=== PATIENT | female | born 1970 | race Caucasian/White ===

== ENCOUNTER → 2017-08-08 | Outpatient (CLI) | payer OTHER ==
[~2017-08-08] MED LIST: AZIT250T PO; CLON.2 PO; GUAI118S23 PO; SULF1TAB42 PO; ZOLP10TA2 PO
[2017-08-08 11:13] LABS: BASOPHILS # (AUTO) 0.06 K/uL (0.00-0.20); BASOPHILS % (AUTO) 0.5 % (0.0-2.0); EOSINOPHILS # (AUTO) 0.49 K/uL (0.00-0.70); EOSINOPHILS % (AUTO) 4.57 % (1.0-6.0); HEMATOCRIT 41.9 % (36-46); HEMOGLOBIN 14.5 g/dL (12.0-16.0); LYMPHOCYTES # (AUTO) 3.7 K/uL (1.0-4.8); LYMPHOCYTES % (AUTO) 34.7 % (22.0-44.0); MEAN CORPUSCULAR HEMOGLOBIN 30.8 pg (26.0-34.0); MEAN CORPUSCULAR HGB CONC 34.5 G/dL (31.0-37.0); MEAN CORPUSCULAR VOLUME 89 fL (80-100); MONOCYTES # (AUTO) 0.5 K/uL (0.1-1.0); MONOCYTES % (AUTO) 4.7 % (2.0-9.0); NEUTROPHILS % (AUTO) 55.5 % (40.0-70.0); PLATELET COUNT (AUTO) 204 K/uL (150-450); RED BLOOD CELL COUNT(AUTO) 4.69 MIL/uL (4.00-5.20); RED CELL DISTRIBUTION WIDTH 13.9 % (11.5-14.5); WHITE BLOOD COUNT (AUTO) 10.8 K/uL (4.5-11.0)
[2017-08-08 11:29] LABS: IRON, SERUM 103 mcg/dL (50-175); TOTAL IRON BINDING CAPACITY 326 mcg/dL (250-450)
[2017-08-08 11:34] LABS: VITAMIN B12 LEVEL 420 pg/mL (211-911)
[2017-08-08 13:01] LABS: ALANINE AMINOTRANSFERASE 27 U/L (12-78); ALBUMIN 3.8 g/dL (3.4-5.0); ANION GAP 9 mmol/L (8-16); ASPARTATE AMINOTRANSFERASE 15 U/L (15-37); BILIRUBIN,TOTAL 0.3 mg/dL (0.1-1.0); CALCIUM, TOTAL 8.7 mg/dL (8.8-10.5); CARBON DIOXIDE 26 mmol/L (22-29); CHLORIDE 104 mmol/L (98-107); CHOL/HDL RATIO 10.4 (3.9-5.7); CREATININE 0.59 mg/dL (0.60-1.30); GLOMERULAR FILTR. RATE CALC > 60 mL/min (>60); POTASSIUM 4.4 mmol/L (3.5-5.1); SODIUM SERUM 139 mmol/L (136-145); THYROID STIMULATING HORMONE 1.69 uIU/mL (0.36-3.74); TOTAL PROTEIN, SERUM 7.2 g/dL (6.4-8.2); UREA NITROGEN, BLOOD 8 mg/dL (7-18)
[2017-08-08 13:39] LABS: HEMOGLOBIN A1C 6.3 % (4.5-6.2)
== END | disposition home or self-care (01) ==
LOC: LABPV 10:01
PROVIDERS: ATTEND Family Medicine
DX: Z00.00 Encounter for general adult medical examination without abnormal findings (principal)
CPT/HCPCS: 82306; 82607; 83036; 83540; 83550; 84439; 84443

== ENCOUNTER 2017-12-20 07:45 | Emergency (ER) | payer OTHER ==
[~2017-12-20] VITALS: Ht 175.3 cm; Wt 90.5 kg
[2017-12-20] MEDS ORDERED: AMLO-512 PO (07:58)
[2017-12-20 08:03] LABS: GLUCOSE,POINT OF CARE 159 MG/DL (70-110)
[2017-12-20 08:49] LABS: INFLUENZA TYPE A NEGATIVE FOR TYPE A (NEGATIVE); INFLUENZA TYPE B NEGATIVE FOR TYPE B (NEGATIVE)
[2017-12-20] MEDS ORDERED: SODIUM CHLORIDE 0.9% 1,000 ML IV ONE (10:15)
[2017-12-20] MEDS ORDERED: ONDANSETRON HCL 4 MG/2 ML VIAL IVP ONE (10:15)
[2017-12-20 10:53] LABS: BASOPHILS % (AUTO) 1.2 % (0.0-2.0); EOSINOPHILS % (AUTO) 4.7 % (1.0-6.0); HEMATOCRIT 48.2 % (36-46); HEMOGLOBIN 16.4 g/dL (12.0-16.0); LYMPHOCYTES # (AUTO) 4.1 K/uL (1.0-4.8); LYMPHOCYTES % (AUTO) 31.4 % (22.0-44.0); MEAN CORPUSCULAR HEMOGLOBIN 31.1 pg (26.0-34.0); MEAN CORPUSCULAR VOLUME 92 fL (80-100); MONOCYTES # (AUTO) 0.6 K/uL (0.1-1.0); MONOCYTES % (AUTO) 4.2 % (2.0-9.0); NEUTROPHILS # (AUTO) 7.7 K/uL (1.8-7.7); NEUTROPHILS % (AUTO) 58.5 % (40.0-70.0); PLATELET COUNT (AUTO) 206 K/uL (150-450); RED BLOOD CELL COUNT(AUTO) 5.26 MIL/uL (4.00-5.20); RED CELL DISTRIBUTION WIDTH 13.6 % (11.5-14.5)
[2017-12-20 10:58] LABS: ANION GAP 11 mmol/L (8-16); CALCIUM, TOTAL 9.4 mg/dL (8.8-10.5); CARBON DIOXIDE 28 mmol/L (22-29); CHLORIDE 105 mmol/L (98-107); CREATININE 0.52 mg/dL (0.60-1.30); GLOMERULAR FILTR. RATE CALC > 60 mL/min (>60); GLUCOSE,RANDOM 105 mg/dL (70-110); POTASSIUM 4.6 mmol/L (3.5-5.1); SODIUM SERUM 144 mmol/L (136-145); UREA NITROGEN, BLOOD 7 mg/dL (7-18)
[2017-12-20 11:06] LABS: ALANINE AMINOTRANSFERASE 33 U/L (12-78); ALBUMIN 4.2 g/dL (3.4-5.0); ALKALINE PHOSPHATASE 121 U/L (46-116); ASPARTATE AMINOTRANSFERASE 24 U/L (15-37); BILIRUBIN,TOTAL 0.4 mg/dL (0.1-1.0); TOTAL PROTEIN, SERUM 8.1 g/dL (6.4-8.2)
[2017-12-20 13:00] VITALS: BP 155/76
[2017-12-20] MEDS ORDERED: AmLODIPine BESYLATE 5 MG TABLET PO ONE (13:00)
== END 2017-12-20 13:29 | disposition home or self-care (01) ==
LOC: EMS 07:47
DX: J02.9 Acute pharyngitis, unspecified (principal); E11.9 Type 2 diabetes mellitus without complications; I10 Essential (primary) hypertension
CPT/HCPCS: 36415; 80053; 82962; 84484; 85025; 87804; 93005; 96361; 96374; 99285; J2405; J7030

== ENCOUNTER 2019-08-19 11:46 | Emergency (ER) | payer OTHER | END 2019-08-19 12:40 | disposition left against medical advice (07) | LOC: EMS 11:50 | DX: J11.1 Influenza due to unidentified influenza virus with other respiratory manifestations (principal); Z53.21 Procedure and treatment not carried out due to patient leaving prior to being seen by health care provider ==

== ENCOUNTER → 2019-08-19 | Outpatient (CLI) | payer OTHER ==
[~2019-08-19] MED LIST changes: +AMLO10TA7 PO; -AZIT250T PO; -GUAI118S23 PO; -SULF1TAB42 PO
[2019-08-19 14:19] LABS: INFLUENZA TYPE A NEGATIVE FOR TYPE A (NEGATIVE); INFLUENZA TYPE B NEGATIVE FOR TYPE B (NEGATIVE)
== END | disposition home or self-care (01) ==
LOC: PUC 13:13
PROVIDERS: ATTEND Nurse Practitioner
DX: Z11.2 Encounter for screening for other bacterial diseases (principal)
CPT/HCPCS: 87804

== ENCOUNTER → 2019-11-17 | Outpatient (CLI) | payer OTHER ==
[2019-11-17 16:59] LABS: BASOPHILS % (AUTO) 0.3 % (0.0-2.0); EOSINOPHILS % (AUTO) 11.2 % (1.0-6.0); HEMATOCRIT 43.5 % (36-46); HEMOGLOBIN 14.8 g/dL (12.0-16.0); LYMPHOCYTES % (AUTO) 25.3 % (22.0-44.0); MEAN CORPUSCULAR HEMOGLOBIN 30.8 pg (26.0-34.0); MEAN CORPUSCULAR HGB CONC 33.9 G/dL (31.0-37.0); MEAN CORPUSCULAR VOLUME 91 fL (80-100); MONOCYTES # (AUTO) 0.4 K/uL (0.1-1.0); MONOCYTES % (AUTO) 5.2 % (2.0-9.0); NEUTROPHILS # (AUTO) 4.5 K/uL (1.8-7.7); PLATELET COUNT (AUTO) 204 K/uL (150-450); RED BLOOD CELL COUNT(AUTO) 4.79 MIL/uL (4.00-5.20); RED CELL DISTRIBUTION WIDTH 14.2 % (11.5-14.5)
[2019-11-17 17:30] LABS: ALANINE AMINOTRANSFERASE 41 U/L (12-78); ALBUMIN 3.5 g/dL (3.4-5.0); ALKALINE PHOSPHATASE 106 U/L (46-116); ANION GAP 7 mmol/L (8-16); ASPARTATE AMINOTRANSFERASE 10 U/L (15-37); BILIRUBIN,TOTAL 0.2 mg/dL (0.1-1.0); C-REACTIVE PROTEIN QUANT 9.45 mg/dL (0.00-0.30); CALCIUM, TOTAL 9.4 mg/dL (8.8-10.5); CARBON DIOXIDE 31 mmol/L (22-29); CHLORIDE 98 mmol/L (98-107); CHOL/HDL RATIO 14.8 (3.9-5.7); CHOLESTEROL 236 mg/dL (131-200); CREATININE 0.65 mg/dL (0.60-1.30); FREE T4 (FREE THYROXINE) 1.18 ng/dL (0.76-1.46); GLOMERULAR FILTR. RATE CALC > 60 mL/min (>60); GLUCOSE,RANDOM 239 mg/dL (70-110); HDL CHOLESTEROL 16 mg/dL (40-60); LDL CHOL (CALC.) 158 mg/dL (0-130); POTASSIUM 3.8 mmol/L (3.5-5.1); SODIUM SERUM 136 mmol/L (136-145); TOTAL PROTEIN, SERUM 7.5 g/dL (6.4-8.2); TRIGLYCERIDES 310 mg/dL (15-150); UREA NITROGEN, BLOOD 8 mg/dL (7-18)
[2019-11-17 20:12] LABS: ERYTHROCYTE SEDIMENTATION RATE 12 MM/HR (0-20)
[2019-11-18 08:54] LABS: VITAMIN B12 LEVEL 439 pg/mL (211-911); VITAMIN D,TOTAL (25-0H) 12 ng/mL (30-100)
== END | disposition home or self-care (01) ==
LOC: LABMN 16:22
PROVIDERS: ATTEND Family Medicine
DX: I10 Essential (primary) hypertension (principal); E11.9 Type 2 diabetes mellitus without complications; J45.909 Unspecified asthma, uncomplicated; E03.9 Hypothyroidism, unspecified
CPT/HCPCS: 82306; 82607; 83036; 84439; 84443; 85651; 86140; 86430

== ENCOUNTER 2020-09-12 07:00 | Inpatient (IN) | payer OTHER ==
[~2020-09-12] VITALS: Ht 172.7 cm; Wt 92.0 kg
[~2020-09-12 07:00] MED LIST changes: +AMLO-258 PO; -AMLO10TA7 PO; +CLON-353 PO; -CLON.2 PO
[2020-09-12] MEDS ORDERED: SODIUM CHLORIDE 0.9% 100 ML ONE (07:25)
[2020-09-12] MEDS ORDERED: IOVERSOL 350 MG/ML 100 ML VIAL ONE (07:25)
[2020-09-12] MEDS ORDERED: ASPIRIN 325 MG TABLET PO ONE (07:30)
[2020-09-12 07:37] LABS: BASOPHILS % (AUTO) 0.7 % (0.0-2.0); EOSINOPHILS % (AUTO) 2.9 % (1.0-6.0); HEMATOCRIT 43.7 % (36-46); HEMOGLOBIN 14.9 g/dL (12.0-16.0); LYMPHOCYTES # (AUTO) 3.5 K/uL (1.0-4.8); LYMPHOCYTES % (AUTO) 29.2 % (22.0-44.0); MEAN CORPUSCULAR HEMOGLOBIN 30.9 pg (26.0-34.0); MEAN CORPUSCULAR VOLUME 91 fL (80-100); MONOCYTES # (AUTO) 0.7 K/uL (0.1-1.0); NEUTROPHILS # (AUTO) 7.3 K/uL (1.8-7.7); NEUTROPHILS % (AUTO) 61.2 % (40.0-70.0); PLATELET COUNT (AUTO) 203 K/uL (150-450); RED BLOOD CELL COUNT(AUTO) 4.81 MIL/uL (4.00-5.20)
[2020-09-12] MEDS ORDERED: ACETAMINOPHEN 500 MG TABLET PO ONE (07:45)
[2020-09-12] MEDS ORDERED: DiphenhydrAMINE HCL 50 MG/ML VIAL IVP ONE (07:45)
[2020-09-12] MEDS ORDERED: KETOROLAC TROMETHAMINE 30 MG/ML VIAL IVP ONE (07:45)
[2020-09-12] MEDS ORDERED: METOCLOPRAMIDE HCL 5 MG/ML 2 ML VIAL IVP ONE (07:45)
[2020-09-12] MEDS ORDERED: DEXAMETHASONE SOD PHOS 4 MG/ML 5 ML VIAL IVP ONE (07:45)
[2020-09-12 07:47] LABS: ANION GAP 11 mmol/L (8-16); CALCIUM, TOTAL 9.5 mg/dL (8.8-10.5); CARBON DIOXIDE 25 mmol/L (22-29); CHLORIDE 101 mmol/L (98-107); CREATININE 0.58 mg/dL (0.60-1.30); GLOMERULAR FILTR. RATE CALC > 60 mL/min (>60); GLUCOSE,RANDOM 251 mg/dL (70-110); SODIUM SERUM 137 mmol/L (136-145); UREA NITROGEN, BLOOD 9 mg/dL (7-18)
[2020-09-12 07:50] LABS: INR 0.9 (0.9-1.1); PROTHROMBIN TIME 9.8 SEC (9.4-11.6)
[2020-09-12 08:05] LABS: ALANINE AMINOTRANSFERASE 35 U/L (12-78); ALBUMIN 3.7 g/dL (3.4-5.0); ALKALINE PHOSPHATASE 92 U/L (46-116); ASPARTATE AMINOTRANSFERASE 11 U/L (15-37); BILIRUBIN,TOTAL 0.2 mg/dL (0.1-1.0); TOTAL PROTEIN, SERUM 6.9 g/dL (6.4-8.2)
[2020-09-12 08:46] LABS: APPEARANCE,URINE CLEAR (CLEAR); BILIRUBIN,URINE NEGATIVE (NEGATIVE); GLUCOSE, URINE (UA) 500 mg/dL (NEGATIVE); KETONES,URINE NEGATIVE (NEGATIVE); LEUKOCYTE ESTERASE ,URINE SMALL (NEGATIVE); NITRATE,URINE NEGATIVE (NEGATIVE); OCCULT BLOOD,URINE NEGATIVE (NEGATIVE); PH,URINE 6.5 (5.0-8.0); PROTEIN,URINE NEGATIVE (NEGATIVE); UROBILINOGEN,URINE 0.2 mg/dL (<=1.0)
[2020-09-12 09:02] LABS: AMPHET/METH SCREEN,URINE NEGATIVE (NEGATIVE); BARBITURATE SCREEN, URINE NEGATIVE (NEGATIVE); BENZODIAZEPINES SCREEN,URINE NEGATIVE (NEGATIVE); CANNABINOID SCREEN,URINE NEGATIVE (NEGATIVE); COCAINE SCREEN,URINE NEGATIVE (NEGATIVE); METHADONE SCREEN, URINE NEGATIVE (NEGATIVE); OPIATE SCREEN,URINE NEGATIVE (NEGATIVE)
[2020-09-12 09:03] LABS: BACTERIA,URINE None Seen /HPF (None Seen); RBC,URINE None Seen /HPF (0-2); SQUAMOUS EPITHELIAL CELL,UR Few /LPF (None Seen)
[2020-09-12 09:05] LABS: PHENCYCLIDINE SCREEN,URINE NEGATIVE (NEGATIVE)
[2020-09-12] MEDS ORDERED: DEXTROSE 50%-WATER 25 GM/50 ML SYRINGE IVP PRN (11:15)
[2020-09-12] MEDS ORDERED: DOCUSATE SODIUM 100 MG CAPSULE PO PRN (11:15)
[2020-09-12] MEDS: PANTOPRAZOLE SODIUM 40 MG DR TABLET PO SCH (11:15)
[2020-09-12] MEDS ORDERED: IPRATROPIUM BROMIDE 0.5 MG/2.5 ML NEB SOLUTION NEB PRN (11:15)
[2020-09-12] MEDS ORDERED: ENALAPRILAT DIHYDRATE 1.25 MG/ML 2 ML VIAL IVP PRN (11:15)
[2020-09-12] MEDS ORDERED: BISACODYL 10 MG RECTAL RECTAL SUPPOSITORY PR PRN (11:15)
[2020-09-12] MEDS ORDERED: ONDANSETRON HCL 4 MG/2 ML VIAL IVP PRN (11:15)
[2020-09-12] MEDS ORDERED: 0.9% SODIUM CHLORIDE 10 ML SYRINGE IVP PRN (11:15)
[2020-09-12] MEDS ORDERED: ALBUTEROL SULFATE 2.5 MG/0.5 ML NEB SOLUTION NEB PRN (11:15)
[2020-09-12] MEDS ORDERED: ZOLP10TA8 PO (11:28)
[2020-09-12] MEDS ORDERED: ATOR40TA71 PO (11:28)
[2020-09-12] MEDS ORDERED: METF-446 PO (11:28)
[2020-09-12] MEDS ORDERED: CITA-144 PO (11:28)
[2020-09-12] MEDS ORDERED: CLON0.3T PO (11:28)
[2020-09-12 13:16] LABS: COVID AG,FIA SOURCE NASOPHARYNGEAL
[2020-09-12] MEDS: ATORVASTATIN CALCIUM 40 MG TABLET PO SCH (14:08)
[2020-09-12 16:36] LABS: GLUCOSE,POINT OF CARE 288 MG/DL (70-110)
[2020-09-12 17:22] VITALS: BP 135/90
[2020-09-12] MEDS: INSULIN LISPRO 100 UNITS/ML SQ PRN ×2 (18:03→21:58)
[2020-09-12] MEDS: ACETAMINOPHEN 325 MG TABLET PO PRN (18:51)
[2020-09-12 20:00] VITALS: BP 120/67
[2020-09-12 23:52] LABS: GLUCOMETER DEV NAME(LOC) 5S.1; GLUCOSE,POINT OF CARE 257 MG/DL (70-110)
[2020-09-12 23:53] LABS: GLUCOMETER DEV NAME(LOC) 5N.3; GLUCOSE,POINT OF CARE 375 MG/DL (70-110)
[2020-09-12 23:53] LABS: GLUCOMETER DEV NAME(LOC) 5S.1; GLUCOSE,POINT OF CARE 285 MG/DL (70-110)
[2020-09-13 00:49] VITALS: BP 159/85
[2020-09-13] MEDS: ACETAMINOPHEN 325 MG TABLET PO PRN ×2 (00:52→09:15)
[2020-09-13] MEDS ORDERED: KETOROLAC TROMETHAMINE 15 MG/ML VIAL IVP ONE (03:45)
[2020-09-13 04:00] VITALS: BP 151/83
[2020-09-13] MEDS: INSULIN LISPRO 100 UNITS/ML SQ PRN ×2 (06:16→11:40)
[2020-09-13 07:29] VITALS: BP 153/86
[2020-09-13 07:42] LABS: BASOPHILS % (AUTO) 0.2 % (0.0-2.0); EOSINOPHILS % (AUTO) 0 % (1.0-6.0); HEMATOCRIT 44.8 % (36-46); HEMOGLOBIN 15.2 g/dL (12.0-16.0); LYMPHOCYTES # (AUTO) 2.6 K/uL (1.0-4.8); MEAN CORPUSCULAR HEMOGLOBIN 30.9 pg (26.0-34.0); MEAN CORPUSCULAR VOLUME 91 fL (80-100); MONOCYTES # (AUTO) 0.6 K/uL (0.1-1.0); NEUTROPHILS % (AUTO) 84.8 % (40.0-70.0); PLATELET COUNT (AUTO) 243 K/uL (150-450); RED BLOOD CELL COUNT(AUTO) 4.93 MIL/uL (4.00-5.20)
[2020-09-13 07:46] LABS: HEMOGLOBIN A1C 9.1 % (3.8-5.6)
[2020-09-13 07:59] LABS: ALANINE AMINOTRANSFERASE 31 U/L (12-78); ALBUMIN 3.9 g/dL (3.4-5.0); ALKALINE PHOSPHATASE 96 U/L (46-116); ANION GAP 12 mmol/L (8-16); ASPARTATE AMINOTRANSFERASE 8 U/L (15-37); BILIRUBIN,TOTAL 0.3 mg/dL (0.1-1.0); CALCIUM, TOTAL 9.2 mg/dL (8.8-10.5); CARBON DIOXIDE 24 mmol/L (22-29); CHLORIDE 101 mmol/L (98-107); CHOL/HDL RATIO 11.3 (3.9-5.7); CHOLESTEROL 340 mg/dL (131-200); CREATININE 0.57 mg/dL (0.60-1.30); FREE T4 (FREE THYROXINE) 1.24 ng/dL (0.76-1.46); GLOMERULAR FILTR. RATE CALC > 60 mL/min (>60); GLUCOSE,RANDOM 258 mg/dL (70-110); HDL CHOLESTEROL 30 mg/dL (40-60); LDL CHOL (CALC.) 282 mg/dL (0-130); POTASSIUM 3.7 mmol/L (3.5-5.1); SODIUM SERUM 137 mmol/L (136-145); THYROID STIMULATING HORMONE 0.33 uIU/mL (0.36-3.74); TOTAL PROTEIN, SERUM 7.5 g/dL (6.4-8.2); TRIGLYCERIDES 138 mg/dL (15-150); UREA NITROGEN, BLOOD 12 mg/dL (7-18)
[2020-09-13] MEDS: ATORVASTATIN CALCIUM 40 MG TABLET PO SCH (08:23)
[2020-09-13] MEDS: PANTOPRAZOLE SODIUM 40 MG DR TABLET PO SCH (08:23)
[2020-09-13] MEDS ORDERED: ASPIRIN 81 MG CHEWABLE TABLET PO SCH (09:00)
[2020-09-13] MEDS ORDERED: TraMADol HCL 50 MG TABLET PO PRN (10:30)
[2020-09-13 11:50] VITALS: BP 140/88
[2020-09-13] MEDS ORDERED: ASPI-728 PO (12:18)
[2020-09-13] MEDS ORDERED: AMLO-258 PO (12:18)
[2020-09-13] MEDS ORDERED: ATOR40TA71 PO (12:18)
[2020-09-13 15:20] VITALS: BP 138/92
[2020-09-13 22:10] LABS: GLUCOMETER DEV NAME(LOC) 5N.3; GLUCOSE,POINT OF CARE 278 MG/DL (70-110)
[2020-09-14 01:39] LABS: GLUCOMETER DEV NAME(LOC) 5S.1; GLUCOSE,POINT OF CARE 298 MG/DL (70-110)
== END 2020-09-13 16:00 | disposition home or self-care (01) | DRG 66 ==
LOC: EMS 07:02 → 5S 11:13
PROVIDERS: ADMIT Internal Medicine; ATTEND Internal Medicine
DX: I63.9 Cerebral infarction, unspecified (principal); I65.29 Occlusion and stenosis of unspecified carotid artery; E78.5 Hyperlipidemia, unspecified; I10 Essential (primary) hypertension; Z82.49 Family history of ischemic heart disease and other diseases of the circulatory system; Z88.8 Allergy status to other drugs, medicaments and biological substances; Z82.3 Family history of stroke; E11.65 Type 2 diabetes mellitus with hyperglycemia; E78.00 Pure hypercholesterolemia, unspecified; Z79.82 Long term (current) use of aspirin; G43.109 Migraine with aura, not intractable, without status migrainosus; Z20.828 Contact with and (suspected) exposure to other viral communicable diseases
CPT/HCPCS: 70496; 70498; 70551; 82607; 83036; 84145; 84439; 84443; 85302; 85305; 85306; 86038; 86850; 86900; 86901; 87086; 87426; 92610; 93005; 93306; 97165; 97535; J1100; J1200; J1885; J2765; J3490; J7050; 36415-L1; 36415-TC; 70450; 70450-TC; 71045-TC; 80061-TC

== ENCOUNTER → 2020-10-08 | Outpatient (CLI) | payer OTHER ==
[~2020-10-08] MED LIST changes: +ASPI-728 PO; +ATOR40TA71 PO; +CITA-144 PO; -CLON-353 PO; +METF-446 PO; -ZOLP10TA2 PO; +ZOLP10TA8 PO
[2020-10-11 00:04] LABS: CARDIOLIPIN AB IGA <9 APL U/mL (0-11)
[2020-10-13 12:06] LABS: PROTEIN S FUNCTIONAL ACTIVITY 92 % (63-140)
== END | disposition home or self-care (01) ==
LOC: LABPV 10:25
PROVIDERS: ATTEND Psychiatry & Neurology Neurology
DX: Z11.3 Encounter for screening for infections with a predominantly sexual mode of transmission (principal); D68.69 Other thrombophilia; I77.6 Arteritis, unspecified; R76.0 Raised antibody titer; R79.9 Abnormal finding of blood chemistry, unspecified; R74.8 Abnormal levels of other serum enzymes; R79.89 Other specified abnormal findings of blood chemistry; D68.2 Hereditary deficiency of other clotting factors; R70.0 Elevated erythrocyte sedimentation rate; D68.9 Coagulation defect, unspecified; B20 Human immunodeficiency virus [HIV] disease; R76.8 Other specified abnormal immunological findings in serum; Z92.82 Status post administration of tPA (rtPA) in a different facility within the last 24 hours prior to admission to current facility
CPT/HCPCS: 81241; 85300; 85301; 85302; 85303; 85305; 85306; 85415; 85613; 85651; 85732; 86038; 86147; 86160; 86256

== ENCOUNTER → 2020-10-08 | Outpatient (CLI) | payer OTHER | END | disposition home or self-care (01) | LOC: RADMN 08:28 | PROVIDERS: ATTEND Psychiatry & Neurology Neurology | DX: I67.82 Cerebral ischemia (principal) | CPT/HCPCS: 70551 ==

== ENCOUNTER → 2022-05-30 | Outpatient (CLI) | payer OTHER ==
[~2022-05-30] MED LIST changes: +ASPI-1450 PO; -ASPI-728 PO
== END | disposition home or self-care (01) ==
LOC: RADMN 10:15
PROVIDERS: ATTEND Dentist Oral and Maxillofacial Surgery
DX: J32.0 Chronic maxillary sinusitis (principal); M27.8 Other specified diseases of jaws
CPT/HCPCS: 70486

== ENCOUNTER → 2022-06-22 | Outpatient (CLI) | payer OTHER | END | disposition home or self-care (01) | LOC: RADMN 06-21 08:35 | PROVIDERS: ATTEND Dentist Oral and Maxillofacial Surgery | DX: M26.69 Other specified disorders of temporomandibular joint (principal) | CPT/HCPCS: 78300; A9503 ==

== ENCOUNTER → 2024-02-28 | Outpatient (CLI) | payer OTHER ==
[~2024-02-28] MED LIST changes: +ZOLP-162 PO; -ZOLP10TA8 PO
[2024-02-28 12:30] LABS: BASOPHILS % (AUTO) 0.7 % (0.0-2.0); EOSINOPHILS % (AUTO) 1.6 % (1.0-6.0); HEMATOCRIT 44.9 % (36-46); LYMPHOCYTES # (AUTO) 3.2 K/uL (1.0-4.8); LYMPHOCYTES % (AUTO) 31.4 % (22.0-44.0); MEAN CORPUSCULAR HEMOGLOBIN 30.7 pg (26.0-34.0); MEAN CORPUSCULAR HGB CONC 33.4 G/dL (31.0-37.0); MEAN CORPUSCULAR VOLUME 92 fL (80-100); MONOCYTES # (AUTO) 0.6 K/uL (0.1-1.0); MONOCYTES % (AUTO) 6.2 % (2.0-9.0); NEUTROPHILS # (AUTO) 6.2 K/uL (1.8-7.7); NEUTROPHILS % (AUTO) 60.1 % (40.0-70.0); PLATELET COUNT (AUTO) 266 K/uL (150-450); RED BLOOD CELL COUNT(AUTO) 4.88 MIL/uL (4.00-5.20); RED CELL DISTRIBUTION WIDTH 15.7 % (11.5-14.5); WHITE BLOOD COUNT (AUTO) 10.3 K/uL (4.5-11.0)
[2024-02-28 12:43] LABS: HEMOGLOBIN A1C 10.2 % (3.8-5.6)
[2024-02-28 13:03] LABS: ALANINE AMINOTRANSFERASE 37 U/L (12-78); ALBUMIN 3.5 g/dL (3.4-5.0); ALKALINE PHOSPHATASE 118 U/L (46-116); ANION GAP 10 mmol/L (8-16); ASPARTATE AMINOTRANSFERASE 10 U/L (15-37); BILIRUBIN,TOTAL 0.2 mg/dL (0.1-1.0); C-REACTIVE PROTEIN QUANT 0.25 mg/dL (0.00-0.30); CALCIUM, TOTAL 9.1 mg/dL (8.8-10.5); CARBON DIOXIDE 27 mmol/L (22-29); CHLORIDE 99 mmol/L (98-107); CHOLESTEROL 191 mg/dL (131-200); CREATININE 0.65 mg/dL (0.60-1.30); FREE T4 (FREE THYROXINE) 0.99 ng/dL (0.76-1.46); GLOMERULAR FILTR. RATE CALC > 60 mL/min (>60); GLUCOSE,RANDOM 217 mg/dL (70-110); HDL CHOLESTEROL 32 mg/dL (40-60); LDL CHOL (CALC.) 91 mg/dL (0-130); POTASSIUM 4.2 mmol/L (3.5-5.1); SODIUM SERUM 136 mmol/L (136-145); THYROID STIMULATING HORMONE 1.36 uIU/mL (0.36-3.74); TOTAL PROTEIN, SERUM 7.7 g/dL (6.4-8.2); TRIGLYCERIDES 342 mg/dL (15-150); UREA NITROGEN, BLOOD 10 mg/dL (7-18)
[2024-02-28 13:23] LABS: VITAMIN B12 LEVEL 561 pg/mL (211-911); VITAMIN D,TOTAL (25-0H) 8 ng/mL (30-100)
== END | disposition home or self-care (01) ==
LOC: LABMN 12:01
PROVIDERS: ATTEND Family Medicine
DX: E11.9 Type 2 diabetes mellitus without complications (principal); I10 Essential (primary) hypertension; I48.91 Unspecified atrial fibrillation; I67.9 Cerebrovascular disease, unspecified
CPT/HCPCS: 80053; 80061; 82306; 82378; 82607; 83036; 84439; 84443; 85025; 86140

== ENCOUNTER 2025-10-01 20:04 | Emergency (ER) | payer OTHER ==
[~2025-10-01] VITALS: Ht 172.7 cm; Wt 77.3 kg
[2025-10-01 20:46] VITALS: TEMP 97.9
[2025-10-01 21:23] VITALS: BP 233/72; PULSE 94; RESP 20; O2SAT 98
[2025-10-01] MEDS: ACETAMINOPHEN 500 MG TABLET PO ONE (22:45)
== END 2025-10-01 23:50 | disposition home or self-care (01) ==
LOC: EMS 20:40
DX: S09.90XA Unspecified injury of head, initial encounter (principal); E11.9 Type 2 diabetes mellitus without complications; I10 Essential (primary) hypertension; Z88.1 Allergy status to other antibiotic agents; Z79.899 Other long term (current) drug therapy; Z79.82 Long term (current) use of aspirin; W01.0XXA Fall on same level from slipping, tripping and stumbling without subsequent striking against object, initial encounter; Y93.01 Activity, walking, marching and hiking; Y92.89 Other specified places as the place of occurrence of the external cause; Y99.8 Other external cause status
CPT/HCPCS: 70450; 99284